=== PATIENT | female | born 1995 ===

== ENCOUNTER 2016-06-04 12:00 | Emergency (ER) | payer BC, OTHER ==
[2016-06-04 12:43] VITALS: BP 136/70; PULSE 85; RESP 20; TEMP 98.7; O2SAT 98
[2016-06-04 13:40] LABS: BASOPHILS % (AUTO) 1 % (0-3); EOSINOPHILS % (AUTO) 1 % (0-9); HEMATOCRIT 44 % (35-47); MEAN CORPUSCULAR HGB CONC 32.3 gm/dl (32.0-36.0); MONOCYTES % (AUTO) 7.5 % (0-12); NEUTROPHILS % (AUTO) 63.7 % (37-80)
[2016-06-04 13:45] LABS: MEAN CORPUSCULAR VOLUME 64 fL (81-99)
[2016-06-04 14:02] LABS: ANISOCYTOSIS SLIGHT AMT; OVALOCYTES PRESENT; TARGET CELLS OCCASIONAL
[2016-06-04 14:24] LABS: ALBUMIN 3.8 gm/dl (3.4-5.0); CALCIUM 8.9 mg/dl (8.5-10.1); POTASSIUM 4.2 mMol/L (3.5-5.1)
== END 2016-06-04 14:39 | disposition home or self-care (01) ==
LOC: ED 12:00
DX: R56.9 Unspecified convulsions (principal); S00.11XD Contusion of right eyelid and periocular area, subsequent encounter; G80.9 Cerebral palsy, unspecified
CPT/HCPCS: 36415; 80053; 85025; 99282; 99283